=== PATIENT | female | born 1975 | race Caucasian/White ===

== ENCOUNTER → 2017-09-29 | Outpatient (CLI) | payer BC ==
--- NOTE | 2017-10-04 08:57 | MM ---
Reason for exam: screening (asymptomatic). History: Patient is nulliparous. Family history of breast cancer in maternal grandmother at age 85. Physical Findings: A clinical breast exam by your physician is recommended on an annual basis and results should be correlated with mammographic findings. MG Screening Mammo w CAD Bilateral CC and MLO view(s) were taken. No prior studies available for comparison. The breast tissue is extremely dense which could obscure a lesion on mammography. Two grouped calcifications 12 o'clock and upper inner quadrant right breast. Nodular dense tissue is present on both sides. ASSESSMENT: Incomplete: need additional imaging evaluation, BI-RAD 0 RECOMMENDATION: Special view mammogram of the right breast. If lesion persists on supplemental views, image directed ultrasound is recommended. [facility] will attempt to contact patient to return for supplemental views and ultrasound if indicated.
== END | disposition home or self-care (01) ==
LOC: RADMAMWWP 15:04 → MERGE 15:04
PROVIDERS: ATTEND Obstetrics & Gynecology
DX: Z12.31 Encounter for screening mammogram for malignant neoplasm of breast (principal)
CPT/HCPCS: 77067

== ENCOUNTER → 2017-11-22 | Outpatient (CLI) | payer BC ==
--- NOTE | 2017-11-24 11:31 | MM ---
Reason for exam: additional evaluation requested from abnormal screening. Last mammogram was performed 2 months ago. History: Patient is nulliparous. Family history of breast cancer in maternal grandmother at age 85. Took hormonal contraceptives beginning at age 16. Physical Findings: Nurse Summary: 1.5cm nodule in the right breast at 10 o'clock (nurse franki). MG Work Up Mamm w CAD RT Spot compression CC, spot compression LM, and LM view(s) were taken of the right breast. Prior study comparison: September 29, 2017, bilateral MG screening mammo w CAD. April 12, 2012, mammogram, performed at [facility]. There are two groups of indeterminate microcalcifications upper inner right breast for which a biopsy is recommended. These results were verbally communicated with the patient and result sheet given to the patient on 11/22/17. ASSESSMENT: Incomplete: need additional imaging evaluation, BI-RAD 0 RECOMMENDATION: Ultrasound of the right breast.
--- NOTE | 2017-11-24 11:32 | USB ---
Reason for exam: additional evaluation requested from abnormal screening. History: Patient is nulliparous. Family history of breast cancer in maternal grandmother at age 85. Took hormonal contraceptives beginning at age 16. US Breast Workup Limited RT Right breast ultrasound demonstrates a 1.2 x 0.9 x 1.1cm oval, mixed lesion at 11 o'clock for which an aspiration is recommended in addition stereotactic core x 2 sites in the right breast for calcifications. These results were verbally communicated with the patient and result sheet given to the patient on 11/22/17. ASSESSMENT: Suspicious, BI-RAD 4 RECOMMENDATION: Aspiration of the right breast. (11 o'clock) Stereotactic core biopsy of the right breast. (x 2 right breast calcifications) Manage patient on a clinical basis. Called Dr. Szymanksi with mammographic findings and has scheduled an appointment for the patient for 11/25/17 at 9:[address] Espinoza. PRELIMINARY REPORT CALLED AND FAXED TO DR. ESPINOZA ON 11/25/17.
== END | disposition home or self-care (01) ==
LOC: RADMAMWWP 15:51
PROVIDERS: ATTEND Obstetrics & Gynecology
DX: R92.8 Other abnormal and inconclusive findings on diagnostic imaging of breast (principal)
CPT/HCPCS: 77065

== ENCOUNTER → 2017-12-29 | Day surgery (SDC) | payer BC ==
[2017-12-29 07:55] VITALS: RESP 16; BMI 21.4
--- NOTE | 2017-12-29 11:07 | USB ---
EXAMINATION TYPE: US discontinued breast core RT DATE OF EXAM: 12/29/2017 HISTORY: 11:00 lesion right breast Comparison: Ultrasound 11/22/ Prior to scheduled biopsy/aspiration right 11:00 lesion ultrasound was performed. The cystic lesion i n question is much smaller in size in the interval and currently measures approximately 5 x 5 mm vers us prior measurement of 1.2 x 0.9 x 1.1 cm. This likely reflects an involuting cyst and was discussed with the patient. Biopsy was therefore discontinued and six-month follow-up ultrasound is advised. IMPRESSION: 1. Probably benign BI-RADS 3 Recommendation: 6 month follow-up ultrasound of the right breast.
--- NOTE | 2017-12-29 11:49 | MM ---
Stereotactic Mammotome core biopsy breast. HISTORY: Microcalcifications upper outer quadrant site of A The calcifications in question within the right breast site labeled A were targeted by the undersigned. Procedure was performed by the undersigned. Informed consent was obtained and all of the patients questions were answered. The standard sterile technique was utilized and appropriate local anesthesia was obtained with 1% lidocaine with bicarbonate. 10 cc of lidocaine and epinephrine were also administered. Mammotome probe was advanced and multiple core samples were obtained and sent to pathology for interpretation. Microclip marker was deployed at the site of biopsy. Post procedural mammogram demonstrates appropriate deployment of radiopaque clip marker. The patient tolerated the procedure well and left the department in stable condition. Pathology results are pending. IMPRESSION: Successful stereotactic core biopsy right breast site A breast with pathology results pending. Pathology Results: Benign A. BREAST, RIGHT, SITE A POSTERIOR, CORE BIOPSY: FIBROCYSTIC CHANGES INCLUDING CYSTS, FIBROSIS, APOCRINE METAPLASIA, FOCAL STROMAL HISTIOCYTES WITH CHRONIC INFLAMMATION SUGGESTIVE OF CYST RUPTURE, AND INTRALUMINAL CALCIUM OXALATE CRYSTALS. PSEUDOANGIOMATOUS STROMAL HYPERPLASIA (PASH). B. BREAST, RIGHT, SITE B ANTERIOR, CORE BIOPSY: FIBROCYSTIC CHANGES INCLUDING CYSTS, FIBROSIS, ADENOSIS AND APOCRINE METAPLASIA, PENDNIG ADDITIONAL LEVELS ( SEE NOTE). PSEUDOANGIOMATOUS STROMAL HYPERPLASIA (PASH). Recommendation Surgical consult of the right breast. (incidental PASH x 2 sites) MIGNON
--- NOTE | 2017-12-29 11:51 | MM ---
Stereotactic Mammotome core biopsy breast. HISTORY: Microcalcifications site B upper outer quadrant right breast The microcalcifications in question within the right breast site B were targeted by the undersigned. Procedure was performed by the undersigned. Informed consent was obtained and all of the patients questions were answered. The standard sterile technique was utilized and appropriate local anesthesia was obtained with 1% lidocaine with bicarbonate. 5 cc 1% lidocaine with epinephrine was also administered. Mammotome probe was advanced and multiple core samples were obtained and sent to pathology for interpretation. Microclip marker was deployed at the site of biopsy. Specimen radiograph does not demonstrate definitive calcifications although the calcifications may have reflected milk of calcium. Post procedural mammogram demonstrates appropriate deployment of radiopaque clip marker. The patient tolerated the procedure well and left the department in stable condition. Pathology results are pending. IMPRESSION: Stereotactic core biopsy right breast site labeled B. Possible milk of calcium calcifications. Pathology results pending. Pathology Results: Benign A. BREAST, RIGHT, SITE A POSTERIOR, CORE BIOPSY: FIBROCYSTIC CHANGES INCLUDING CYSTS, FIBROSIS, APOCRINE METAPLASIA, FOCAL STROMAL HISTIOCYTES WITH CHRONIC INFLAMMATION SUGGESTIVE OF CYST RUPTURE, AND INTRALUMINAL CALCIUM OXALATE CRYSTALS. PSEUDOANGIOMATOUS STROMAL HYPERPLASIA (PASH). B. BREAST, RIGHT, SITE B ANTERIOR, CORE BIOPSY: FIBROCYSTIC CHANGES INCLUDING CYSTS, FIBROSIS, ADENOSIS AND APOCRINE METAPLASIA, PENDNIG ADDITIONAL LEVELS ( SEE NOTE). PSEUDOANGIOMATOUS STROMAL HYPERPLASIA (PASH). Recommendation Surgical consult of the right breast. (incidental PASH x 2 sites) MTDD
[2017-12-29 12:01] VITALS: BP 103/64; PULSE 61; TEMP 97.9
== END | disposition home or self-care (01) ==
LOC: RADPROWWP 07:25 → EDSTATUS 08:00
PROVIDERS: ATTEND Surgery
DX: N60.21 Fibroadenosis of right breast (principal); N60.81 Other benign mammary dysplasias of right breast; N60.01 Solitary cyst of right breast; N61.0 Mastitis without abscess
CPT/HCPCS: 88305; 19081; 19082; 19083; 76641; A4648; J2001

== ENCOUNTER → 2018-09-07 | Outpatient (CLI) | payer BC ==
--- NOTE | 2018-09-07 13:59 | MM ---
Reason for exam: follow-up at short interval from prior study. Last mammogram was performed 9 months ago. History: Patient is nulliparous. Family history of breast cancer in maternal grandmother at age 85. Benign MG stereo VAD BX addl RT of the right breast, December 29, 2017. Benign MG stereo VAD BX RT of the right breast, December 29, 2017. US discontinued breast core RT of the right breast, December 29, 2017. Took hormonal contraceptives beginning at age 16. Taking other hormone beginning at age 39. Physical Findings: Nurse Summary: 1.5cm nodule in the right breast at 10 o'clock and a 1cm nodule in the left breast at 2 o'clock (nurse dw). MG 3D Diag Mammo W/Cad RT CC and MLO view(s) were taken of the right breast. Prior study comparison: November 22, 2017, right breast MG work up mamm w CAD RT. September 29, 2017, bilateral MG screening mammo w CAD. The breast tissue is extremely dense which could obscure a lesion on mammography. Stable benign calcifications. Previous mammotome biopsy in the right breast. There is chronic nodularity. These results were verbally communicated with the patient and result sheet given to the patient on 09/07/18. ASSESSMENT: Incomplete: need additional imaging evaluation, BI-RAD 0 RECOMMENDATION: Ultrasound of both breasts. Manage patient on a clinical basis.
--- NOTE | 2018-09-07 14:01 | USB ---
Reason for exam: additional evaluation requested from abnormal screening. History: Patient is nulliparous. Family history of breast cancer in maternal grandmother at age 85. Benign MG stereo VAD BX addl RT of the right breast, December 29, 2017. Benign MG stereo VAD BX RT of the right breast, December 29, 2017. US discontinued breast core RT of the right breast, December 29, 2017. Took hormonal contraceptives beginning at age 16. Taking other hormone beginning at age 39. US Breast Limited BILAT Right limited breast ultrasound including focal area of concern, retroareolar and axilla demonstrates a 0.4 x 0.3 x 0.5cm oval, cystic lesion at 10 o'clock and a 1.1 x 0.5 x 0.5cm oval, cystic cluster at 10 o'clock. Left limited breast ultrasound including focal area of concern, retroareolar and axilla is negative. These results were verbally communicated with the patient and result sheet given to the patient on 09/07/18. ASSESSMENT: Benign, BI-RAD 2 RECOMMENDATION: Return to routine screening mammogram schedule for both breasts. Manage patient on a clinical basis.
== END | disposition home or self-care (01) ==
LOC: RADMAMWWP 09:37
PROVIDERS: ATTEND Surgery
DX: R92.8 Other abnormal and inconclusive findings on diagnostic imaging of breast (principal)
CPT/HCPCS: 77061; 77065

== ENCOUNTER → 2018-09-07 | Outpatient (CLI) | payer BC | END | disposition home or self-care (01) | LOC: RADUSWWP 09:40 | PROVIDERS: ATTEND Surgery | DX: Z53.9 Procedure and treatment not carried out, unspecified reason (principal) ==

== ENCOUNTER → 2018-09-15 | Outpatient (CLI) | payer BC ==
[2018-09-15 10:56] VITALS: BP 96/59; PULSE 60; RESP 18; TEMP 97.2; BMI 21.9
--- NOTE | 2018-09-15 11:17 | P.PN ---
Subjective Progress Note Date: 09/15/18 Principal diagnosis: Patient status post stereo biopsy right breast December 2017 Sarah is a 43-year-old white female who is status post right breast stereotactic core biopsy in December 2017. Pathology revealed PASH. The patient had a repeat right breast mammogram and bilateral breast ultrasounds done in August 2018. The patient had a physical exam by the nurse in August which fell to 1.5 cm nodule in the right breast and 10:00 and 1cm nodular left breast at 2:00. Her mammogram revealed only dense breast tissue. Bilateral breast ultrasounds revealed in the right breast a 0.5 cm cystic lesion at 10:00 and a 1.1 cm cystic lesion at 10:00 and in the left breast and no lesions of concern. The patient noes not feel anything of concern in her breast at this time. The patient does not note changes in her breast before her periods. The patient drinks one to 2 cups of caffeinated beverage per day. He does not note any changes in her breasts related to caffeinated beverages. She eats minimal chocolate. She does not smoke and is not exposed to secondhand smoke. Patient takes 10 mg of pregnenalone. She had been on BCP for 15 years. Objective - Vital Signs Vital signs: Vital Signs Temp 97.2 F L 09/15/18 10:51 Pulse 60 09/15/18 10:51 Resp 18 09/15/18 10:51 BP 96/59 09/15/18 10:51 Pulse Ox 100 09/15/18 10:51 Intake & Output 09/14/18 09/15/18 09/15/18 18:59 06:59 18:59 Weight 58.06 kg - Exam BMI 22 - Constitutional General appearance: Present: average body habitus, cooperative - EENT Eyes: Present: EOMI ENT: Present: hearing grossly normal - Neck Neck: Present: normal ROM - Respiratory Respiratory: bilateral: CTA - Cardiovascular Rhythm: regular Heart sounds: normal: S1, S2 - Gastrointestinal General gastrointestinal: Present: soft - Integumentary Integumentary: Present: normal turgor - Musculoskeletal Musculoskeletal: Present: gait normal - Psychiatric Psychiatric: Present: A&O x's 3, appropriate affect, intact judgment & insight - Additional findings Additional findings: Breast examination: Right breast: Multi-positional exam fibrocystic changes the patient had been noted by the nurse to have a 1.5 cm nodule 10 o'clock position of the right breast this appears to be consistent with fibrocystic changes on today's exam and no discrete nodule was identified Right axilla: No adenopathy of concern Left breast: 1 cm nodule noted by the nurse at the 2 o'clock position at this time on today's exam this appears to be fibrocystic changes with no discrete nodule of concern identified the patient has no other lesions of concern in either breast Left axilla: No adenopathy of concern Assessment and Plan Assessment: Impression: 1. Fibrocystic breast changes Plan: 1. Repeat bilateral mammogram in February with physician exam at that time the mammogram in February us to get back on schedule the patient will call sooner if she notes any changes of concern CC: Dr. Aragon (Roge), Dr. Rosas [id number] [place] [address]
== END | disposition home or self-care (01) ==
LOC: WWCWWP 10:48
PROVIDERS: ATTEND Surgery
DX: Z53.9 Procedure and treatment not carried out, unspecified reason (principal)

== ENCOUNTER → 2019-02-26 | Outpatient (CLI) | payer BC ==
--- NOTE | 2019-02-26 11:15 | MM ---
Reason for exam: additional evaluation requested from prior study. Last mammogram was performed 6 months ago. History: Patient is nulliparous. Family history of breast cancer in maternal grandmother at age 85. Benign MG stereo VAD BX addl RT of the right breast, December 29, 2017. Benign MG stereo VAD BX RT of the right breast, December 29, 2017. US discontinued breast core RT of the right breast, December 29, 2017. Took hormonal contraceptives beginning at age 16. Taking other hormone beginning at age 39. Physical Findings: Nurse did not find any significant physical abnormalities on exam. MG 3D Diag Mammo W/Cad CHARISMA Bilateral CC and MLO view(s) were taken. Prior study comparison: September 07, 2018, right breast MG 3d diag mammo w/cad RT. November 22, 2017, right breast MG work up mamm w CAD RT. The breast tissue is heterogeneously dense. This may lower the sensitivity of mammography. Previous mammotome biopsy in the right breast x 2. Nodular asymmetry central posterior right CC was present previously. Anterior central asymmetric density left CC view was present previously. No significant new findings when compared with previous films. These results were verbally communicated with the patient and result sheet given to the patient on 02/26/19. ASSESSMENT: Benign, BI-RAD 2 RECOMMENDATION: Routine screening mammogram of both breasts in 1 year. Patient should continue monthly self breast exams. A negative report should not preclude additional follow up of suspicious palpable abnormalities.
== END | disposition home or self-care (01) ==
LOC: RADMAMWWP 10:14
PROVIDERS: ATTEND Surgery
DX: R92.8 Other abnormal and inconclusive findings on diagnostic imaging of breast (principal)
CPT/HCPCS: 77062; 77066

== ENCOUNTER → 2020-03-03 | Outpatient (CLI) | payer BC ==
--- NOTE | 2020-03-03 13:20 | MM ---
Reason for exam: screening (asymptomatic). Last mammogram was performed 1 year ago. History: Patient is nulliparous. Family history of breast cancer in maternal grandmother at age 85. Benign MG stereo VAD BX addl RT of the right breast, December 29, 2017. Benign MG stereo VAD BX RT of the right breast, December 29, 2017. US discontinued breast core RT of the right breast, December 29, 2017. Took hormonal contraceptives beginning at age 16. Taking other hormone beginning at age 39. Physical Findings: A clinical breast exam by your physician is recommended on an annual basis and results should be correlated with mammographic findings. MG 3D Screening Mammo W/Cad Bilateral CC and MLO view(s) were taken. Prior study comparison: February 26, 2019, bilateral MG 3d diag mammo w/cad CHARISMA. September 07, 2018, right breast MG 3d diag mammo w/cad RT. The breast tissue is extremely dense which could obscure a lesion on mammography. Previous mammotome biopsy in the right breast x 2. There is no discrete abnormality. ASSESSMENT: Benign, BI-RAD 2 RECOMMENDATION: Routine screening mammogram of both breasts in 1 year.
== END | disposition home or self-care (01) ==
LOC: RADMAMWWP 10:05
PROVIDERS: ATTEND Obstetrics & Gynecology
DX: Z12.31 Encounter for screening mammogram for malignant neoplasm of breast (principal)
CPT/HCPCS: 77063; 77067

== ENCOUNTER → 2021-06-26 | Outpatient (CLI) | payer BC ==
--- NOTE | 2021-06-29 09:48 | MM ---
Reason for exam: screening (asymptomatic). Last mammogram was performed 1 year and 4 months ago. History: Patient is nulliparous. Family history of breast cancer in maternal grandmother at age 85. Benign MG stereo VAD BX addl RT of the right breast, December 29, 2017. Benign MG stereo VAD BX RT of the right breast, December 29, 2017. US discontinued breast core RT of the right breast, December 29, 2017. Took hormonal contraceptives beginning at age 16. Taking other hormone for 1 month. Physical Findings: A clinical breast exam by your physician is recommended on an annual basis and results should be correlated with mammographic findings. MG 3D Screening Mammo W/Cad Bilateral CC and MLO view(s) were taken. Prior study comparison: March 03, 2020, bilateral MG 3d screening mammo w/cad. February 26, 2019, bilateral MG 3d diag mammo w/cad CHARISMA. The breast tissue is extremely dense which could obscure a lesion on mammography. There is an oval asymmetry in the far posterior central left MLO view only and diagnostic mammogram with possible ultrasound is recommended. Two right biopsy clips. ASSESSMENT: Incomplete: need additional imaging evaluation, BI-RAD 0 RECOMMENDATION: Special view mammogram of the left breast. If lesion persists on supplemental views, image directed ultrasound is recommended. [facility] will attempt to contact patient to return for supplemental views and ultrasound if indicated.
== END | disposition home or self-care (01) ==
LOC: RADMAMWWP 13:35
PROVIDERS: ATTEND Obstetrics & Gynecology
DX: Z12.31 Encounter for screening mammogram for malignant neoplasm of breast (principal); Z80.3 Family history of malignant neoplasm of breast
CPT/HCPCS: 77063; 77067

== ENCOUNTER → 2021-07-17 | Outpatient (CLI) | payer BC ==
--- NOTE | 2021-07-20 09:36 | MM ---
Reason for exam: additional evaluation requested from abnormal screening. Last mammogram was performed 1 month ago. History: Patient is nulliparous. Family history of breast cancer in maternal grandmother at age 85. Benign MG stereo VAD BX addl RT of the right breast, December 29, 2017. Benign MG stereo VAD BX RT of the right breast, December 29, 2017. US discontinued breast core RT of the right breast, December 29, 2017. Took hormonal contraceptives beginning at age 16. Taking other hormone for 1 month. Physical Findings: Nurse Summary: 1.5cm nodule in the right breast at 10-11 o'clock and a 1.5cm nodule in the left breast at 1 o'clock (nurse TM). MG 3D Work Up W/Cad LT LM and spot compression MLO view(s) were taken of the left breast. Prior study comparison: June 26, 2021, bilateral MG 3d screening mammo w/cad. March 03, 2020, bilateral MG 3d screening mammo w/cad. The breast tissue is heterogeneously dense. This may lower the sensitivity of mammography. Finding: There is a 10 mm equal density (isodense), circumscribed round mass in the posterior position of the left breast consistent with probably benign finding. There is no discrete abnormality at left palpable. These results were verbally communicated with the patient and result sheet given to the patient on 07/17/21. ASSESSMENT: Incomplete: need additional imaging evaluation, BI-RAD 0 RECOMMENDATION: Ultrasound of both breasts.
--- NOTE | 2021-07-20 09:38 | USB ---
Reason for exam: additional evaluation requested from abnormal screening. History: Patient is nulliparous. Family history of breast cancer in maternal grandmother at age 85. Benign MG stereo VAD BX addl RT of the right breast, December 29, 2017. Benign MG stereo VAD BX RT of the right breast, December 29, 2017. US discontinued breast core RT of the right breast, December 29, 2017. Took hormonal contraceptives beginning at age 16. Taking other hormone for 1 month. US Breast Workup Limited CHARISMA Right limited breast ultrasound including focal area of concern, retroareolar and axilla demonstrates a 1.5 x 1.3 x 1.1cm cystic lesion at 9 o'clock and a 1.3 x 1.1 x 1.0cm cystic lesion at 9 o'clock. Left limited breast ultrasound including focal area of concern, retroareolar and axilla demonstrates a 0.4 x 0.5 x 0.4cm cystic lesion at 1 o'clock. These results were verbally communicated with the patient and result sheet given to the patient on 07/17/21. ASSESSMENT: Benign, BI-RAD 2 RECOMMENDATION: Follow-up diagnostic mammogram of the left breast in 6 months. Manage patient on a clinical basis.
== END | disposition home or self-care (01) ==
LOC: RADMAMWWP 15:05
PROVIDERS: ATTEND Obstetrics & Gynecology
DX: N60.01 Solitary cyst of right breast (principal); N60.02 Solitary cyst of left breast; N63.20 Unspecified lump in the left breast, unspecified quadrant; Z80.3 Family history of malignant neoplasm of breast
CPT/HCPCS: 77061; 77065

== ENCOUNTER → 2022-08-04 | Outpatient (CLI) | payer BC ==
--- NOTE | 2022-08-04 13:55 | MM ---
Reason for Exam: Follow-up at short interval from prior study. Last mammogram was performed 1 year(s) and 1 month(s) ago. Patient History: Menarche at age 13. Patient has no children. Hormonal Contraceptives, from age 16 until age 31. 12/29/2017, Benign Core Biopsy on the right side. 12/29/2017, Benign Core Biopsy on the right side. 12/29/2017, US discontinued breast core RT on the right side. Maternal grandmother had breast cancer, age 85. Risk Values: Kamila 5 year model risk: 2.3%. NCI Lifetime model risk: 16.0%. Tissue Density: The breast tissue is extremely dense which could obscure a lesion on mammography. Findings: Analyzed By CAD. No evidence for suspicious cluster of microcalcifications. Nodule seen previously left breast is less conspicuous and appears to be smaller in size. No evidence for mass or distortion. Overall Assessment: Benign, BI-RAD 2 Management: Screening Mammogram of both breasts in 1 year. A clinical breast exam by your physician is recommended on an annual basis and results should be correlated with mammographic findings. This exam should not preclude additional follow-up of suspicious palpable abnormalities. Results were given to the patient verbally at the time of exam. Electronically signed and approved by: Octavio Cuadra M.D. Radiologis
== END | disposition home or self-care (01) ==
LOC: RADMAMWWP 12:56
PROVIDERS: ATTEND Obstetrics & Gynecology
DX: R92.8 Other abnormal and inconclusive findings on diagnostic imaging of breast (principal); Z80.3 Family history of malignant neoplasm of breast
CPT/HCPCS: 77062; 77066

== ENCOUNTER → 2023-09-08 | Outpatient (CLI) | payer BC ==
--- NOTE | 2023-09-09 13:22 | MM ---
Reason for Exam: Screening (asymptomatic). Last mammogram was performed 1 year(s) and 1 month(s) ago. Patient History: Menarche at age 13. Patient has no children. Premenopausal. Hormonal Contraceptives, from age 16 until age 31. 12/29/2017, Benign Core Biopsy on the right side. 12/29/2017, Benign Core Biopsy on the right side. 12/29/2017, US discontinued breast core RT on the right side. Maternal grandmother had breast cancer, age 85. Last menstrual period: 09/07/2023 Risk Values: Kamila 5 year model risk: 2.1%. NCI Lifetime model risk: 15.6%. Prior Study Comparison: 06/26/2021 Bilateral Screening Mammogram, [facility]. 07/17/2021 Left Diagnostic Mammogram, [facility]. 08/04/2022 Bilateral MG 3D diag mammo w/cad CHARISMA, [facility]. Tissue Density: The breast tissue is extremely dense which could obscure a lesion on mammography. Findings: Analyzed By CAD. Right breast biopsy clips. There is no suspicious group of microcalcifications or new suspicious mass. Overall Assessment: Negative, BI-RAD 1 Management: Screening Mammogram of both breasts in [address] [facility] will attempt to contact patient to return for supplemental views and ultrasound if indicated. Patient should continue monthly self-breast exams. A clinical breast exam by your physician is recommended on an annual basis. This exam should not preclude additional follow-up of suspicious palpable abnormalities. Note on Kamila scores and lifetime risk: 1. A Kamila score greater than 3% is considered moderate risk. If this is the case, consider specialist referral to assess eligibility for a risk reducing agent. 2. If overall lifetime risk for the development of breast cancer is 20% or higher, the patient may qualify for future screening with alternating mammogram and breast MRI. Electronically signed and approved by: Evaristo Velazco DO
== END | disposition home or self-care (01) ==
LOC: RADMAMWWP 13:19
PROVIDERS: ATTEND Obstetrics & Gynecology
DX: Z12.31 Encounter for screening mammogram for malignant neoplasm of breast (principal); Z80.3 Family history of malignant neoplasm of breast
CPT/HCPCS: 77063; 77067

== ENCOUNTER → 2024-09-10 | Outpatient (CLI) | payer BC ==
--- NOTE | 2024-09-13 18:14 | MM ---
Reason for Exam: Screening (asymptomatic). Last screening mammogram was performed 12 month(s) ago. Patient History: Menarche at age 13. Patient has no children. Premenopausal. Hormonal Contraceptives, from age 16 until age 31. 12/29/2017, Benign Core Biopsy on the right side. 12/29/2017, Benign Core Biopsy on the right side. 12/29/2017, US discontinued breast core RT on the right side. Maternal grandmother had breast cancer, age 85. Last menstrual period: 08/12/2024 Risk Values: Kamila 5 year model risk: 1.9%. NCI Lifetime model risk: 15.3%. Prior Study Comparison: 07/17/2021 Left Diagnostic Mammogram, [facility]. 08/04/2022 Bilateral MG 3D diag mammo w/cad CHARISMA, [facility]. 09/08/2023 Bilateral MG 3D screening mammo w/cad, [facility]. Tissue Density: The breasts are extremely dense, which lowers the sensitivity of mammography. Findings: Analyzed By CAD. The pattern is symmetrical. No significant interval change. Two core markers are within right breast. No suspicious groups of microcalcifications, spiculated or lobular masses, architectural distortion or other secondary signs of malignancy are mammographically apparent. Overall Assessment: Benign, BI-RAD 2 Management: Screening Mammogram of both breasts in 1 year. A negative mammogram report should not preclude additional follow up of suspicious palpable abnormalities. Patient should continue monthly self breast exam. A clinical breast exam by your physician is recommended on an annual basis and results should be correlated with mammographic findings. Note on Kamila scores and lifetime risk: 1. A Kmaila score greater than 3% is considered moderate risk. If this is the case, consider specialist referral to assess eligibility for a risk reducing agent. 2. If overall lifetime risk for the development of breast cancer is 20% or higher, the patient may qualify for future screening with alternating mammogram and breast MRI. [facility], , 09/13/2024 6:11 PM. Electronically signed and approved by: Laurent Banks D.O. Radiologis
== END | disposition home or self-care (01) ==
LOC: RADMAMWWP 14:37
PROVIDERS: ATTEND Obstetrics & Gynecology
DX: Z12.31 Encounter for screening mammogram for malignant neoplasm of breast (principal); Z80.3 Family history of malignant neoplasm of breast; R92.343 Mammographic extreme density, bilateral breasts; Z98.82 Breast implant status
CPT/HCPCS: 77063; 77067